=== PATIENT | male | born 1960 | race African-American/Black ===

== ENCOUNTER → 2017-04-27 | Outpatient (CLI) | payer BC, OTHER ==
[~2017-04-27] VITALS: Ht 180.3 cm; Wt 99.7 kg
[~2017-04-27] MED LIST: ADVIL200 MG PO; CARDI-OMEGA1000 MG PO; CENTRUM1 TA1 PO; CENTRUM1 TAB PO; HCTZ 25MG TAB25 MG PO; MEDROL 4MG DOSPA4 MG PO; PERCOCET 325 MG1 TA2 PO; ZINC50 M2 PO
[2017-04-27 05:50] VITALS: BP 150/91; PULSE 60
== END ==
LOC: COL.CARD 05:36
DX: R07.9 Chest pain, unspecified (principal)
CPT/HCPCS: A9502

== ENCOUNTER 2021-10-26 05:31 | Emergency (ER) | payer BC, OTHER ==
[~2021-10-26] VITALS: Ht 180.3 cm; Wt 97.7 kg
[2021-10-26 05:35] VITALS: TEMP 97.9
[2021-10-26] MEDS ORDERED: LIPITOR 10MG10 MG PO (05:46)
[2021-10-26] MEDS ORDERED: PRINZIDE 12.5 M1 TAB PO (05:46)
[2021-10-26 05:56] LABS: BASO % 0.6 % (0.0-2.0); EOS # 0.4 K/mm3 (0.0-0.7); EOS % 7.6 % (0.0-4.0); GRAN # 2.5 K/mm3 (1.4-6.5); GRAN % 46.8 % (42.2-75.2); HEMATOCRIT 42.4 % (42.0-52.0); HEMOGLOBIN 14.1 g/dl (13.5-18.0); LYMPH # 1.8 K/mm3 (1.2-3.4); MEAN CELL VOLUME 87 fl (80.0-100.0); MEAN CORPUSCULAR HEMOGLOBIN 29 pg (27-31); MEAN CORPUSCULAR HGB CONC 33 g/dl (33.0-37.0); MEAN PLATELET VOLUME 9.5 fl (7.4-10.4); MONO # 0.6 K/mm3 (0.1-0.6); MONO % 10.8 % (1.7-9.3); PLATELET COUNT 245 K/mm3 (130-400); RED BLOOD COUNT 4.85 M/mm3 (4.20-5.60)
[2021-10-26 06:06] LABS: PROTHROMBIN TIME 11.6 SECONDS (9.7-12.8)
[2021-10-26 06:09] LABS: PARTIAL THROMBOPLASTIN TIME 19.3 SECONDS (26.0-37.0)
[2021-10-26 06:18] LABS: ALBUMIN 4.3 gm/dL (3.4-4.8); BILIRUBIN,TOTAL 0.6 mg/dL (0.2-1.2); CALCIUM 9.3 mg/dL (8.4-10.2); CREATININE, serum 1.18 mg/dL (0.72-1.25); POTASSIUM 3.8 mmol/L (3.5-4.5); TOTAL PROTEIN 7.8 gm/dL (6.2-8.1)
[2021-10-26 06:24] LABS: TROPONIN-I 0.019 ng/mL (0.00-0.033)
[2021-10-26 06:38] VITALS: BP 139/92; PULSE 78
== END 2021-10-26 06:52 | disposition home or self-care (01) ==
LOC: COL.ER 05:31
PROVIDERS: Emergency Medicine
DX: R07.2 Precordial pain (principal); I10 Essential (primary) hypertension; E78.5 Hyperlipidemia, unspecified; Z20.822 Contact with and (suspected) exposure to COVID-19; Z87.891 Personal history of nicotine dependence; Z79.899 Other long term (current) drug therapy

== ENCOUNTER → 2023-12-14 | Outpatient (CLI) | payer BC, OTHER ==
[~2023-12-14] MED LIST changes: +Gadoterate 20 ML VIAL IV ONE; +LIPITOR 10MG10 MG PO; +MOTRIN 800800 MG/TAB PO; +PRINZIDE 12.5 M1 TAB PO
== END ==
LOC: COL.RAD 08:20
DX: D32.9 Benign neoplasm of meninges, unspecified (principal)
CPT/HCPCS: A9575

== ENCOUNTER 2024-06-19 09:46 | Emergency (ER) | payer BC, MEDICARE, OTHER ==
[~2024-06-19] VITALS: Ht 180.3 cm; Wt 93.2 kg
[~2024-06-19 09:46] MED LIST changes: -Gadoterate 20 ML VIAL IV ONE
[2024-06-19 09:54] VITALS: TEMP 98
[2024-06-19 10:52] LABS: BASO % 0.6 % (0.0-2.0); EOS # 0.2 K/mm3 (0.0-0.7); EOS % 4.7 % (0.0-4.0); GRAN # 3.1 K/mm3 (1.4-6.5); GRAN % 60.9 % (42.2-75.2); HEMATOCRIT 40.8 % (42.0-52.0); HEMOGLOBIN 13.5 g/dl (13.5-18.0); LYMPH # 1.1 K/mm3 (1.2-3.4); LYMPH % 22.5 % (20.0-51.0); MEAN CELL VOLUME 88 fl (80.0-100.0); MEAN CORPUSCULAR HEMOGLOBIN 29 pg (27-31); MEAN CORPUSCULAR HGB CONC 33 g/dl (33.0-37.0); MEAN PLATELET VOLUME 9.2 fl (7.4-10.4); MONO # 0.6 K/mm3 (0.1-0.6); MONO % 11.1 % (1.7-9.3); PLATELET COUNT 263 K/mm3 (130-400); RED BLOOD COUNT 4.64 M/mm3 (4.20-5.60); REDCELL DISTRIBUTION WIDTH-CV 13.2 % (11.5-14.5)
[2024-06-19 11:17] LABS: ALBUMIN 4.2 g/dL (3.4-4.8); BILIRUBIN,TOTAL 0.5 mg/dL (0.2-1.2); CALCIUM 9.7 mg/dL (8.4-10.2); CREATININE, serum 1.03 mg/dL (0.72-1.25); POTASSIUM 3.7 mEq/L (3.5-4.5)
[2024-06-19 11:24] LABS: TROPONIN-I 0.01 ng/mL (0.00-0.033)
[2024-06-19] MEDS ORDERED: Ketorolac 15 MG/ML VIAL IV ONE (11:30)
[2024-06-19 12:02] VITALS: BP 122/74; PULSE 54
[2024-06-20] MEDS ORDERED: NAPROSYN500 MG PO (17:57)
[2024-06-20] MEDS ORDERED: FLEXERIL 1010 MG/TAB PO (17:57)
== END 2024-06-19 12:06 | disposition home or self-care (01) ==
LOC: COL.ER 09:46
PROVIDERS: Physician Assistant
DX: R07.89 Other chest pain (principal)
CPT/HCPCS: J1885

== ENCOUNTER 2024-06-20 16:40 | Emergency (ER) | payer BC, MEDICARE, OTHER ==
[~2024-06-20] VITALS: Ht 180.3 cm; Wt 93.2 kg
[2024-06-20 16:47] VITALS: BP 131/91; TEMP 98.1
[2024-06-20] MEDS ORDERED: Cyclobenzaprine 10 MG TAB PO ONE (17:45)
[2024-06-20] MEDS ORDERED: Ketorolac 30 MG/ML VIAL IM ONE (17:45)
[2024-06-20] MEDS ORDERED: NAPROSYN500 MG PO (17:57)
[2024-06-20] MEDS ORDERED: FLEXERIL 1010 MG/TAB PO (17:57)
[2024-06-20 18:11] VITALS: PULSE 71
== END 2024-06-20 18:15 | disposition home or self-care (01) ==
LOC: COL.ER 16:40
DX: M54.12 Radiculopathy, cervical region (principal)
CPT/HCPCS: J1885